=== PATIENT | female | born 1940 | race Hispanic/Latino ===

== ENCOUNTER 2021-01-29 14:11 | Inpatient (IN) | payer MEDICARE ==
--- NOTE | 2021-01-29 14:25 | Event Note ---
ED Screening Note ED Screening Note: Patient brought in by her daughter with complaints of altered mental status that began 3 days ago The daughter states that it was at its worse yesterday but improved today She states that she was altered and did not want to cooperate or have her blood sugars checked and acting abnormally She states it seemed like she was slurring her speech and having difficulty walking Patient states that she is also had a cough for 4 to 5 days Patient was sent in by her primary care doctor due to hypotension and her s ymptoms She has a history of hypertension and diabetes She denies any fever, nausea, vomiting, diarrhea, abdominal pain Daughter states that her blood sugar was elevated yesterday in the 400s This initial assessment/diagnostic orders/clinical plan/treatment(s) is/are subject to change based on patients health status, clinical progression and re- assessment by fellow clinical providers in the ED. Further treatment and workup at subsequent clinical providers discretion. Patient/guardian urged not to elope from the ED as their condition may be serious if not clinically assessed and managed. Initial orders include: Labs, EKG, CT, x-ray
[2021-01-29 16:34] LABS: Basophils # (Auto) 0.1 K/mm3 (0.0-0.1); Basophils % (Auto) 0.9 % (0.0-1.8); Eosinophils # (Auto) 0.3 K/mm3 (0.0-0.4); Eosinophils % (Auto) 3.7 % (0.0-4.3); Hematocrit 36.2 % (30.3-42.9); Lymphocytes # (Auto) 2.7 K/mm3 (1.2-5.4); Lymphocytes % (Auto) 29.6 % (13.4-35.0); Mean Corpuscular HGB Conc 33 % (30-34); Mean Corpuscular Volume 85 fl (79-97); Monocytes # (Auto) 0.9 K/mm3 (0.0-0.8); Monocytes % (Auto) 9.8 % (0.0-7.3); Platelet Count 202 K/mm3 (140-440); Red Blood Count 4.28 M/mm3 (3.65-5.03); Red Cell Distribution Width 15.5 % (13.2-15.2)
--- NOTE | 2021-01-29 16:40 | XRay Report ---
CHEST 2 VIEWS INDICATION / CLINICAL INFORMATION: cough. COMPARISON: None available. FINDINGS: SUPPORT DEVICES: None. HEART / MEDIASTINUM: No significant abnormality. LUNGS / PLEURA: No significant pulmonary or pleural abnormality. No pneumothorax. ADDITIONAL FINDINGS: Sclerotic lesion is seen in the proximal left humeral metaphysis IMPRESSION: 1. No acute findings. Sclerotic irregularity left humeral metaphysis however this was also seen in 20 11 and likely benign. Signer Name: Daniele James MD Signed: 01/29/2021 4:36 PM Workstation Name: [id number]
[2021-01-29 16:46] LABS: Partial Thromboplastin Time 35.4 Sec. (24.2-36.6)
[2021-01-29] MEDS ORDERED: SODIUM CHLORIDE 0.9% 1000 ML 1,000 ML IV ONE (16:53)
[2021-01-29] MEDS ORDERED: SODIUM CHLORIDE 0.9% 1000 ML IV SOLN IV ONE (16:54)
[2021-01-29 16:59] LABS: Alanine Aminotransferase 8 units/L (7-56); Albumin 4.3 g/dL (3.9-5); BUN/Creatinine Ratio 20; Blood Urea Nitrogen 30 mg/dL (7-17); Calcium 9.4 mg/dL (8.4-10.2); Hemolysis Index 31
--- NOTE | 2021-01-29 18:22 | Emergency Department Report ---
ED Neuro Deficit HPI - General Chief Complaint: Altered Mental Status Stated Complaint: POSSIBLE STROKE Time Seen by Provider: 01/29/21 14:22 Source: patient, family Mode of arrival: Wheelchair Limitations: No Limitations - History of Present Illness Initial Comments: Chief complaint: Slurred speech, difficulty walking, confusion HPI: This is a 80-year-old female with history of insulin-dependent diabetes, coronary artery disease status post cardiac stents, hypertension, hyperlipidemia, breast cancer in remission who presents with slurred speech and difficulty walking for the past few days. Patient has been confused and agitated. She was brought to the emergency department after being evaluated by PCP today. Patient has had gait instability and slurred speech since Tuesday. Yesterday she was agitated. On speaking to her daughter, she insisted that she did not have diabetes. Patient was evaluated in PCPs office. PCP was concerned for CVA, dehydration. Blood sugar over 300 in the office. Blood pressure 1/70 PCP desired to rule out VT, sepsis, CVA. -: Gradual, days(s) (3 days ago on Tuesday) Location: speech, ataxia Presenting Symptoms: Present: Altered Mental Status History of same: No Place: home Severity: moderate Improves With: none Worsens With: none On Anticoagulants: No Context: gradual onset Associated Symptoms: confusion Treatments Prior to Arrival: other (Evaluation by PCP) - Related Data Allergies/Adverse Reactions: Allergies Allergy/AdvReac Type Severity Reaction Status Date / Time codeine Allergy Shortness Unverified 10/30/14 11:25 of Breath iodine Allergy Hives Unverified 10/30/14 11:25 Sulfa (Sulfonamide Allergy Seizure Unverified 10/30/14 11:25 Antibiotics) ED Review of Systems ROS: Stated complaint: POSSIBLE STROKE Other details as noted in HPI Comment: All other systems reviewed and negative Constitutional: malaise Cardiovascular: denies: chest pain Gastrointestinal: denies: abdominal pain, nausea, vomiting Neurological: confusion, abnormal gait. denies: headache ED Past Medical Hx - Past Medical History Previous Medical History?: Yes Hx Hypertension: Yes Hx Diabetes: Yes Hx of Cancer: Yes Additional medical history: heart stents - Surgical History Past Surgical History?: Yes Additional Surgical History: double masectomy November 2019 - Social History Smoking Status: Never Smoker Substance Use Type: None ED Neuro Physical Exam - General Limitations: No Limitations General appearance: alert, in no apparent distress Suspected Stroke: Yes - Head Head exam: Present: atraumatic, normocephalic - Eye Eye exam: Present: normal appearance - ENT ENT exam: Present: mucous membranes dry - Neck Neck exam: Present: normal inspection, full ROM - Respiratory Respiratory exam: Present: normal lung sounds bilaterally. Absent: respiratory distress - Cardiovascular Cardiovascular Exam: Present: regular rate, normal rhythm, normal heart sounds. Absent: systolic murmur, diastolic murmur, rubs, gallop - GI/Abdominal GI/Abdominal exam: Present: soft, normal bowel sounds. Absent: tenderness, guarding, rebound - Extremities Exam Extremities exam: Present: normal inspection - Neurological Exam Neurological exam: Present: alert, oriented X3 - NIHSS Assessment Interval: Baseline 1a. Level of Consciousness: alert/keenly responsive 1b. LOC Questions: answers both correctly 1c. LOC Commands: performs tasks correctly 2. Best Gaze: normal 3. Visual: no visual loss 4. Facial Palsy: normal symmetrical movement 5b. Motor Arm Right: no drift 5a. Motor Arm Left: no drift 6a. Motor Leg Left: no drift 6b. Motor Leg Right: no drift 7. Limb Ataxia: absent 8. Sensory: normal 9. Best Language: no aphasia 10. Dysarthria: normal 11. Extinction/Inattention: no abnormality Total Score: 0 Stroke Severity: No Stroke Symptoms - Psychiatric Psychiatric exam: Present: normal affect, normal mood - Skin Skin exam: Present: warm, dry, intact, normal color. Absent: rash ED Course Vital Signs 01/29/21 01/29/21 01/29/21 14:26 18:16 18:28 Temperature 98.0 F Pulse Rate 68 Respiratory 18 17 Rate Blood Pressure Blood Pressure 99/45 [Right] O2 Sat by Pulse 96 91 Oximetry 01/29/21 01/29/21 18:31 18:47 Temperature Pulse Rate 61 79 Respiratory Rate Blood Pressure 119/53 Blood Pressure [Right] O2 Sat by Pulse 100 Oximetry - Lab Data Result diagrams: 01/29/21 15:59 01/29/21 15:59 Lab Results 01/29/21 01/29/21 01/29/21 Range/Units 14:23 15:59 15:59 WBC 9.1 (4.5-11.0) K/mm3 RBC 4.28 (3.65-5.03) M/mm3 Hgb 12.0 (10.1-14.3) gm/dl Hct 36.2 (30.3-42.9) % MCV 85 (79-97) fl MCH 28 (28-32) pg MCHC 33 (30-34) % RDW 15.5 H (13.2-15.2) % Plt Count 202 (140-440) K/mm3 Lymph % (Auto) 29.6 (13.4-35.0) % [place] % (Auto) 9.8 H (0.0-7.3) % Eos % (Auto) 3.7 (0.0-4.3) % Baso % (Auto) 0.9 (0.0-1.8) % Lymph # (Auto) 2.7 (1.2-5.4) K/mm3 [place] # (Auto) 0.9 H (0.0-0.8) K/mm3 Eos # (Auto) 0.3 (0.0-0.4) K/mm3 Baso # (Auto) 0.1 (0.0-0.1) K/mm3 Seg Neutrophils % 56.0 (40.0-70.0) % Seg Neutrophils # 5.1 (1.8-7.7) K/mm3 PT 13.0 (12.2-14.9) Sec. INR 1.00 (0.87-1.13) APTT 35.4 (24.2-36.6) Sec. VBG pH (7.320-7.420) Sodium (137-145) mmol/L Potassium (3.6-5.0) mmol/L Chloride (98-107) mmol/L Carbon Dioxide (22-30) mmol/L Anion Gap mmol/L BUN (7-17) mg/dL Creatinine (0.6-1.2) mg/dL Estimated GFR ml/min BUN/Creatinine Ratio % Glucose (65-100) mg/dL POC Glucose 252 H (70-105) mg/dL Lactic Acid (0.7-2.0) mmol/L Calcium (8.4-10.2) mg/dL Magnesium (1.7-2.3) mg/dL Total Bilirubin (0.1-1.2) mg/dL AST (5-40) units/L ALT (7-56) units/L Alkaline Phosphatase (35-129) units/L Total Creatine Kinase (30-135) units/L Troponin T (0.00-0.029) ng/mL Total Protein (6.3-8.2) g/dL Albumin (3.9-5) g/dL Albumin/Globulin Ratio % 01/29/21 01/29/21 01/29/21 Range/Units 15:59 15:59 15:59 WBC (4.5-11.0) K/mm3 RBC (3.65-5.03) M/mm3 Hgb (10.1-14.3) gm/dl Hct (30.3-42.9) % MCV (79-97) fl MCH (28-32) pg MCHC (30-34) % RDW (13.2-15.2) % Plt Count (140-440) K/mm3 Lymph % (Auto) (13.4-35.0) % [place] % (Auto) (0.0-7.3) % Eos % (Auto) (0.0-4.3) % Baso % (Auto) (0.0-1.8) % Lymph # (Auto) (1.2-5.4) K/mm3 [place] # (Auto) (0.0-0.8) K/mm3 Eos # (Auto) (0.0-0.4) K/mm3 Baso # (Auto) (0.0-0.1) K/mm3 Seg Neutrophils % (40.0-70.0) % Seg Neutrophils # (1.8-7.7) K/mm3 PT (12.2-14.9) Sec. INR (0.87-1.13) APTT (24.2-36.6) Sec. VBG pH 7.333 (7.320-7.420) Sodium 137 (137-145) mmol/L Potassium 4.1 (3.6-5.0) mmol/L Chloride 95.2 L (98-107) mmol/L Carbon Dioxide 23 (22-30) mmol/L Anion Gap 23 mmol/L BUN 30 H (7-17) mg/dL Creatinine 1.5 H (0.6-1.2) mg/dL Estimated GFR 34 ml/min BUN/Creatinine Ratio 20 % Glucose 221 H (65-100) mg/dL POC Glucose (70-105) mg/dL Lactic Acid 4.60 H* (0.7-2.0) mmol/L Calcium 9.4 (8.4-10.2) mg/dL Magnesium 1.60 L (1.7-2.3) mg/dL Total Bilirubin 0.20 (0.1-1.2) mg/dL AST 12 (5-40) units/L ALT 8 (7-56) units/L Alkaline Phosphatase 69 (35-129) units/L Total Creatine Kinase 112 (30-135) units/L Troponin T < 0.010 (0.00-0.029) ng/mL Total Protein 6.8 (6.3-8.2) g/dL Albumin 4.3 (3.9-5) g/dL Albumin/Globulin Ratio 1.7 % - EKG Data -: EKG Interpreted by [place] EKG shows normal: sinus rhythm, axis Rate: bradycardia 01/29/21 18:48 EKG obtained 1839 EKG interpreted by or Sinus bradycardia rate 55 bpm normal axis normal QTC +U wavepositive LVH - Radiology Data Radiology results: report reviewed Patient Name: NAOMY THOMAS Gender: Female Date of : 1940 Referring Provider: OSMEL INTERIANO Organization: [facility] Accession Number: [id number] Requested Date: January 29, 2021 14:22 Report Status: Final Requested Procedure: 1 Procedure Description: XR chest routine 2V Modality: XR Findings Reporting MD: Daniele James Dictation Time: January 29, 2021 15:36 Digital Photographic Printer: Not available [employer] Machine Operator Date: CHEST 2 VIEWS INDICATION / CLINICAL INFORMATION: cough. COMPARISON: None available. FINDINGS: SUPPORT DEVICES: None. HEART / MEDIASTINUM: No significant abnormality. LUNGS / PLEURA: No significant pulmonary or pleural abnormality. No pneumothorax. ADDITIONAL FINDINGS: Sclerotic lesion is seen in the proximal left humeral metaphysis IMPRESSION: 1. No acute findings. Sclerotic irregularity left humeral metaphysis however this was also seen in 2010 and likely benign. Signer Name: Daniele James MD Signed: 01/29/2021 3:36 PM Workstation Name: [id number] Patient Name: NAOMY THOMAS Gender: Female Date of : 1940 Referring Provider: SLY AMIN Organization: [facility] Accession Number: [id number] Requested Date: January 29, 2021 18:14 Report Status: Final Requested Procedure: 1 Procedure Description: CT head/brain wo con Modality: CT Findings Reporting MD: Marlon Salcido Dictation Time: January 29, 2021 17:59 Digital Photographic Printer: Not available [employer]ing Machine Operator Date: CT head/brain wo con INDICATION / CLINICAL INFORMATION: 80 years Female; Slurred speech difficulty walking. TECHNIQUE: Routine CT head without contrast. All CT scans at this location are performed using CT dose reduction for ALARA by means of automated exposure control. COMPARISON: None. FINDINGS: There is moderate cerebral white matter disease most consistent with microvascular angiopathy. There is mild cerebral atrophy with associated mild prominence of the ventricular system. There is no clear CT evidence of acute intracranial hemorrhage or significant mass effect. ORBITS: No significant abnormality of visualized orbits. SINUSES / MASTOIDS: No significant abnormality in the visualized paranasal sinuses or mastoid air cells. CRANIOCERVICAL JUNCTION: No significant abnormality. ADDITIONAL FINDINGS: None. IMPRESSION: 1. There is microvascular angiopathy and cerebral atrophy as described without CT evidence of acute intracranial hemorrhage. Signer Name: Marlon Salcido MD Signed: 01/29/2021 5:59 PM Workstation Name: [id number] - Medical Decision Making 1. Gait imbalance, slurred speech: Unclear if orthostatic hypotension due to dehydration versus acute CVA versus acute metabolic encephalopathy versus acute delirium due to infection, considering CT head findings underlying vascular dementia is a consideration. Patient recently moved closer to live with her daughter. 2. Hypotension attributed to hypovolemia. Patient has not eaten well well. She has had persistent hyperglycemia for the last few weeks, IV fluid therapy initiated emergency department 3. Lactic acidosis without overt infection attributed to Metformin use 4. Acute kidney injury GFR of 34: Vasomotor nephropathy due to volume contraction Patient will need further evaluation to rule out CVA and receive volume IV fluid repletion Critical care attestation.: If time is entered above; I have spent that time in minutes in the direct care of this critically ill patient, excluding procedure time. ED Disposition Clinical Impression: Acute CVA (cerebrovascular accident), Dehydration, Acute kidney injury, Acute metabolic encephalopathy Disposition: DC-09 OP ADMIT IP TO THIS HOSP Is pt being admited?: Yes Does the pt Need Aspirin: No Condition: Stable
--- NOTE | 2021-01-29 19:03 | Cat Scan Report ---
CT head/brain wo con INDICATION / CLINICAL INFORMATION: 80 years Female; Slurred speech difficulty walking. TECHNIQUE: Routine CT head without contrast. All CT scans at this location are performed using CT dos e reduction for ALARA by means of automated exposure control. COMPARISON: None. FINDINGS: There is moderate cerebral white matter disease most consistent with microvascular angiopathy. There is mild cerebral atrophy with associated mild prominence of the ventricular system. There is no clear CT evidence of acute intracranial hemorrhage or significant mass effect. ORBITS: No significant abnormality of visualized orbits. SINUSES / MASTOIDS: No significant abnormality in the visualized paranasal sinuses or mastoid air marry ls. CRANIOCERVICAL JUNCTION: No significant abnormality. ADDITIONAL FINDINGS: None. IMPRESSION: 1. There is microvascular angiopathy and cerebral atrophy as described without CT evidence of acute i ntracranial hemorrhage. Signer Name: Marlon Salcido MD Signed: 01/29/2021 6:59 PM Workstation Name: [id number]
[2021-01-29 21:48] LABS: Bilirubin,Urine NEG (Negative); Blood,Urine NEG (Negative); Color,Urine Yellow (Yellow); Hyaline Casts,Urine 1 /LPF; Protein,Urine <15 mg/dL mg/dL (Negative); Urobilinogen,Urine < 2.0 mg/dL (<2.0)
[2021-01-30] MEDS ORDERED: oxyCODONE /ACETAMINOPHEN 5-325MG TAB PO PRN (00:41)
[2021-01-30] MEDS ORDERED: ACETAMINOPHEN 325 MG TAB PO PRN (00:41)
[2021-01-30] MEDS ORDERED: HYDROmorphone 1 MG/1 ML INJ IV PRN (00:41)
[2021-01-30] MEDS ORDERED: ONDANSETRON 4 MG/2 ML INJ IV PRN (00:41)
[2021-01-30] MEDS ORDERED: METOCLOPRAMIDE 10 MG TAB PO PRN ×2 (00:41→00:47)
--- NOTE | 2021-01-30 00:44 | History and Physical Report ---
History of Present Illness Date of examination: 01/30/21 Date of admission: 01/29/21 19:03 Chief complaint: Left lower extremity weakness for 5 days History of present illness: 80-year-old female with history of insulin-dependent diabetes, coronary artery disease with stents, hypertension and hyperlipidemia s/p breast cancer in remission comes in for difficulty walking for the past 5 days. Patient has left lower extremity weakness and unable to walk. Patient had prior lumbar disc surgery few years ago. Because of the patient's lower left extremity weakness patient has to be held while walking. Patient states that she may have slurred speech but while talking with me her speech was clear. Patient had multiple surgeries in the past. - Past Medical History --Previous Medical History?: Yes --Hypertension: Yes --Diabetes: Yes --Cancer: Yes --Additional medical history: heart stents - Surgical History Past Surgical History?: Yes Additional Surgical History: double masectomy November 2019 Hysterectomy - Social History Smoking Status: Never Smoker Substance Use Type: None -Family history Htn Review of Systems ROS: Constitutional no weight loss or weight gain no fever or chills HEENT no sore throat no post nasal drip no diplopia Neck no neck stiffness no lymph gland enlargement Chest and lungs no shortness of breath cough or wheezing CVS no chest pain no diaphoresis no palpitations GI no nausea no vomiting no diarrhea Genitourinary system no dysuria no flank pain Musculoskeletal system no muscle pains no joint pains UNIFORMER left lower extremity weakness Skin no rash no itching Psychiatric no depression no homicidal or suicidal tendencies Hematologic no lymphedema or bruising Endocrine no polydipsia no polyuria no cold intolerance no heat intolerance Medications and Allergies Allergies Allergy/AdvReac Type Severity Reaction Status Date / Time codeine Allergy Shortness Unverified 10/30/14 11:25 of Breath iodine Allergy Hives Unverified 10/30/14 11:25 Sulfa (Sulfonamide Allergy Seizure Unverified 10/30/14 11:25 Antibiotics) Exam - Constitutional Vitals: Temp Pulse Resp BP Pulse Ox 98.3 F 60 16 135/52 95 01/29/21 22:56 01/29/21 22:56 01/29/21 22:56 01/29/21 22:56 01/29/21 22:56 General appearance: Present: no acute distress, well-nourished - EENT Eyes: Present: PERRL ENT: hearing intact, clear oral mucosa - Neck Neck: Present: supple, normal ROM - Respiratory Respiratory effort: normal Respiratory: bilateral: CTA - Cardiovascular Heart rate: 57 Rhythm: regular Heart Sounds: Present: S1 & S2. Absent: rub, click - Extremities Extremities: no ischemia, pulses symmetrical, No edema Peripheral Pulses: within normal limits - Abdominal General gastrointestinal: Present: soft, non-tender, non-distended, normal bowel sounds Female genitourinary: Present: normal - Rectal Rectal Exam: deferred - Integumentary Integumentary: Present: clear, warm, dry - Musculoskeletal Musculoskeletal: left sided weakness - Psychiatric Psychiatric: appropriate mood/affect, intact judgment & insight - Neurologic Neurologic: CNII-XII intact, focal deficits (Left lower extremity weakness 3/5 power) HEART Score - HEART Score Troponin: Troponin T < 0.010 ng/mL (0.00-0.029) 01/29/21 15:59 Results - Labs CBC & Chem 7: 01/29/21 15:59 01/29/21 15:59 Labs: Laboratory Last Values WBC 9.1 K/mm3 (4.5-11.0) 01/29/21 15:59 RBC 4.28 M/mm3 (3.65-5.03) 01/29/21 15:59 Hgb 12.0 gm/dl (10.1-14.3) 01/29/21 15:59 Hct 36.2 % (30.3-42.9) 01/29/21 15:59 MCV 85 fl (79-97) 01/29/21 15:59 MCH 28 pg (28-32) 01/29/21 15:59 MCHC 33 % (30-34) 01/29/21 15:59 RDW 15.5 % (13.2-15.2) H 01/29/21 15:59 Plt Count 202 K/mm3 (140-440) 01/29/21 15:59 Lymph % (Auto) 29.6 % (13.4-35.0) 01/29/21 15:59 [place] % (Auto) 9.8 % (0.0-7.3) H 01/29/21 15:59 Eos % (Auto) 3.7 % (0.0-4.3) 01/29/21 15:59 Baso % (Auto) 0.9 % (0.0-1.8) 01/29/21 15:59 Lymph # (Auto) 2.7 K/mm3 (1.2-5.4) 01/29/21 15:59 [place] # (Auto) 0.9 K/mm3 (0.0-0.8) H 01/29/21 15:59 Eos # (Auto) 0.3 K/mm3 (0.0-0.4) 01/29/21 15:59 Baso # (Auto) 0.1 K/mm3 (0.0-0.1) 01/29/21 15:59 Seg Neutrophils % 56.0 % (40.0-70.0) 01/29/21 15:59 Seg Neutrophils # 5.1 K/mm3 (1.8-7.7) 01/29/21 15:59 PT 13.0 Sec. (12.2-14.9) 01/29/21 15:59 INR 1.00 (0.87-1.13) 01/29/21 15:59 APTT 35.4 Sec. (24.2-36.6) 01/29/21 15:59 VBG pH 7.333 (7.320-7.420) 01/29/21 15:59 Sodium 137 mmol/L (137-145) 01/29/21 15:59 Potassium 4.1 mmol/L (3.6-5.0) 01/29/21 15:59 Chloride 95.2 mmol/L (98-107) L 01/29/21 15:59 Carbon Dioxide 23 mmol/L (22-30) 01/29/21 15:59 Anion Gap 23 mmol/L 01/29/21 15:59 BUN 30 mg/dL (7-17) H 01/29/21 15:59 Creatinine 1.5 mg/dL (0.6-1.2) H 01/29/21 15:59 Estimated GFR 34 ml/min 01/29/21 15:59 BUN/Creatinine Ratio 20 % 01/29/21 15:59 Glucose 221 mg/dL (65-100) H 01/29/21 15:59 POC Glucose 252 mg/dL (70-105) H 01/29/21 14:23 Lactic Acid 4.60 mmol/L (0.7-2.0) H* 01/29/21 15:59 Calcium 9.4 mg/dL (8.4-10.2) 01/29/21 15:59 Magnesium 1.60 mg/dL (1.7-2.3) L 01/29/21 15:59 Total Bilirubin 0.20 mg/dL (0.1-1.2) 01/29/21 15:59 AST 12 units/L (5-40) 01/29/21 15:59 ALT 8 units/L (7-56) 01/29/21 15:59 Alkaline Phosphatase 69 units/L (35-129) 01/29/21 15:59 Total Creatine Kinase 112 units/L (30-135) 01/29/21 15:59 Troponin T < 0.010 ng/mL (0.00-0.029) 01/29/21 15:59 Total Protein 6.8 g/dL (6.3-8.2) 01/29/21 15:59 Albumin 4.3 g/dL (3.9-5) 01/29/21 15:59 Albumin/Globulin Ratio 1.7 % 01/29/21 15:59 Urine Color Yellow (Yellow) 01/29/21 21:32 Urine Turbidity Clear (Clear) 01/29/21 21:32 Urine pH 5.0 (5.0-7.0) 01/29/21 21:32 Ur Specific [place] 1.012 (1.003-1.030) 01/29/21 21:32 Urine Protein <15 mg/dl mg/dL (Negative) 01/29/21 21:32 Urine Glucose (UA) 50 mg/dL (Negative) 01/29/21 21:32 Urine Ketones Neg mg/dL (Negative) 01/29/21 21:32 Urine Blood Neg (Negative) 01/29/21 21:32 Urine Nitrite Neg (Negative) 01/29/21 21:32 Urine Bilirubin Neg (Negative) 01/29/21 21:32 Urine Urobilinogen < 2.0 mg/dL (<2.0) 01/29/21 21:32 Ur Leukocyte Esterase Neg (Negative) 01/29/21 21:32 Urine WBC (Auto) 1.0 /HPF (0.0-6.0) 01/29/21 21:32 Urine RBC (Auto) 1.0 /HPF (0.0-6.0) 01/29/21 21:32 U Epithel Cells (Auto) < 1.0 /HPF (0-13.0) 01/29/21 21:32 Hyaline Casts 1 /LPF 01/29/21 21:32 Assessment and Plan Advance Directives: Yes (Full code) VTE prophylaxis?: Chemical Plan of care discussed with patient/family: Yes - Patient Problems (1) Monoplegia affecting left nondominant side Current Visit: Yes Status: Acute Plan to address problem: Patient has left lower extremity weakness only We will get MRI of LS spine. And also MRI brain for exclusion of CVA Differential diagnosis of cerebrovascular accident and lumbar disc compression (2) Acute kidney injury Current Visit: Yes Status: Acute Plan to address problem: Secondary to vasomotor nephropathy and dehydration IV fluids for now (3) HTN (hypertension) Current Visit: Yes Status: Chronic Qualifiers: Hypertension type: essential hypertension Qualified Code(s): I10 - Essential (primary) hypertension Plan to address problem: Continue antihypertensives (4) T2DM (type 2 diabetes mellitus) Current Visit: Yes Status: Chronic Qualifiers: Diabetes mellitus termite renewal inspector insulin use: unspecified [facility] insulin use status Plan to address problem: No home medications to reconcile Check hemoglobin A1c Coverage for now (5) DVT prophylaxis Current Visit: Yes Status: Acute Plan to address problem: On heparin and GI prophylaxis
[2021-01-30] MEDS ORDERED: SODIUM CHLORIDE 0.9% 1000 ML 1,000 ML IV SCH (00:45)
--- NOTE | 2021-01-30 00:49 | Event Note ---
Date: 01/29/21 MRI brain and MRI LS spine to be ordered by primary team The system does not allow me to order it
[2021-01-30] MEDS: INSULIN LISPRO 100 UNIT/ML SUB-Q SCH ×4 (07:55→22:43)
--- NOTE | 2021-01-30 08:58 | Consultation ---
History of Present Illness Consult date: 01/30/21 Reason for Consult: Weakness Chief complaint: History of present illness: 80-year-old female with history of insulin-dependent diabetes, coronary artery disease with stents, hypertension and hyperlipidemia s/p breast cancer in remission comes in for difficulty walking for the past 5 days. Patient has left lower extremity weakness and unable to walk. Patient had prior lumbar disc surgery few years ago. Because of the patient's lower left extremity weakness patient has to be held while walking. Patient states that she may have slurred speech but while talking with me her speech was clear. Patient had multiple surgeries in the past. History of present illness: 80-year-old female with history of insulin-dependent diabetes, coronary artery disease with stents, hypertension and hyperlipidemia s/p breast cancer in remission comes in for difficulty walking for the past 5 days. Patient has left lower extremity weakness and unable to walk. Patient had prior lumbar disc surgery few years ago. Because of the patient's lower left extremity weakness patient has to be held while walking. Patient states that she may have slurred speech but while talking with me her speech was clear. Patient had multiple surgeries in the past. The patient reports back pain, but reports slowly progressive left leg weakness , no improvement per patient . Medications and Allergies Allergies Allergy/AdvReac Type Severity Reaction Status Date / Time codeine Allergy Shortness Unverified 10/30/14 11:25 of Breath iodine Allergy Hives Unverified 10/30/14 11:25 Sulfa (Sulfonamide Allergy Seizure Unverified 10/30/14 11:25 Antibiotics) Active Meds: Active Medications Acetaminophen (Acetaminophen 325 Mg Tab) 650 mg PO Q4H PRN PRN Reason: Pain MILD(1-3)/Fever >100.5/RASMUSSEN Amlodipine Besylate (Amlodipine 5 Mg Tab) 5 mg PO QDAY PACO Famotidine (Famotidine 20 Mg/2 Ml Inj) 20 mg IV DAILY PACO Hydralazine HCl (Hydralazine 20 Mg/1 Ml Inj) 10 mg IV Q6HR PRN PRN Reason: Hypertension Hydromorphone HCl (Hydromorphone 1 Mg/1 Ml Inj) 0.5 mg IV Q3H PRN PRN Reason: Pain , Severe (7-10) Sodium Chloride (Nacl 0.9% 1000 Ml) 1,000 mls @ 75 mls/hr IV DIRECT PACO Insulin Human Lispro (Insulin Lispro 100 Unit/Ml) 0 unit SUB-Q ACHS PACO; Protocol Metoclopramide HCl (Metoclopramide 10 Mg Tab) 5 mg PO Q6H PRN PRN Reason: Nausea And Vomiting Ondansetron HCl (Ondansetron 4 Mg/2 Ml Inj) 4 mg IV Q8H PRN PRN Reason: Nausea And Vomiting Oxycodone/Acetaminophen (Oxycodone /Acetaminophen 5-325mg Tab) 1 tab PO Q6H PRN PRN Reason: Pain, Moderate (4-6) Sodium Chloride (Sodium Chloride 0.9% 10 Ml Flush Syringe) 10 ml IV BID PACO Sodium Chloride (Sodium Chloride 0.9% 10 Ml Flush Syringe) 10 ml IV PRN PRN PRN Reason: LINE FLUSH Physical Examination - Vital Signs Vital Signs: Vital Signs Temp Pulse Resp BP Pulse Ox 98.0 F 68 18 99/45 96 01/29/21 14:26 01/29/21 14:26 01/29/21 14:26 01/29/21 14:26 01/29/21 14:26 - Physical Exam Narrative exam: The patient is alert , strength in the upper and right LE is 5/5 . There is weakness in the Left Leg 3/5 and there is ? incoordiantion . Results - Laboratory Findings CBC and BMP: 01/29/21 15:59 01/29/21 15:59 Abnormal Lab Findings: Abnormal Labs 01/29/21 01/29/21 01/29/21 14:23 15:59 15:59 RDW 15.5 H Crane % (Auto) 9.8 H Crane # (Auto) 0.9 H Chloride 95.2 L BUN 30 H Creatinine 1.5 H Glucose 221 H POC Glucose 252 H Lactic Acid Magnesium 1.60 L 01/29/21 15:59 RDW Crane % (Auto) Crane # (Auto) Chloride BUN Creatinine Glucose POC Glucose Lactic Acid 4.60 H* Magnesium Assessment and Plan 1. Possibilty of CVA seems likely . 2. In the differential diagnosis ( focal Lumbar radiculopathy cannot be excludedc ). 3. MRI Brain and MRI Lumbar Spine + MRA Brain and Neck . 4. Needs Inpt PT . 5. Continue all Home Medications . 6. Out Patient Neurology Follow up . Dr. Celeste
[2021-01-30] MEDS: amLODIPine 5 MG TAB PO SCH (09:02)
[2021-01-30] MEDS ORDERED: FAMOTIDINE 20 MG/2 ML INJ IV SCH ×2 (10:00)
--- NOTE | 2021-01-30 10:51 | Electrocardiograph Report ---
[facility] Test Date: 2021-01-29 Test Time: 18:39:57 Pat Name: NAOMY THOMAS Department: Room: A470 1 Gender: F Variety Performer: MONICA : 1940 Requested By: OSMEL INTERIANO Order Number: [id number] Reading MD: Lv Maxwell Measurements Intervals [place] Rate: 57 P: 43 [place]: 166 QRS: 12 QRSD: 102 T: 14 QT: 447 QTc: 435 Interpretive Statements Sinus bradycardia Probable left ventricular hypertrophy Nonspecific T abnormalities, inferior leads No previous ECG available for comparison Electronically Signed On 01-30-2021 10:50:46 EDT by Lv Maxwell
[2021-01-30] MEDS: hydrALAZINE 20 MG/1 ML INJ IV PRN ×2 (12:48→21:10)
[2021-01-30] MEDS ORDERED: MAGNESIUM SULFATE 1 GM in SODIUM CHLORIDE 0.9% 50 ML IV ONE (13:40)
--- NOTE | 2021-01-30 13:46 | Progress Note ---
Subjective Date of service: 01/30/21 Interval history: Chief complaint: Left lower extremity weakness for 5 days History of present illness: 80-year-old female with history of insulin-dependent diabetes, coronary artery disease with stents, hypertension and hyperlipidemia s/p breast cancer in remission comes in for difficulty walking for the past 5 days. Patient has left lower extremity weakness and unable to walk. Patient had prior lumbar disc surgery few years ago. Because of the patient's lower left extremity weakness patient has to be held while walking. Patient states that she may have slurred speech but while talking with me her speech was clear. Patient had multiple surgeries in the past. 01/30 patient is alert and oriented, not in any distress complaints of left lower extremity weakness for the past 5 days and stumbling for words She denies any falls or loss of consciousness. She denies any chest pain or shortness of breath. Neurology note reviewed. Stroke work-up in progress Lab results reviewed Assessment and plan Left lower extremity weakness and dysarthria Stroke work-up initiated Neurology consulted and note reviewed Neurochecks Telemetry Waiting for MRI brain, MRI C-spine and MRA of head and neck Continue aspirin and high intensity statin PT/OT/ST Acute kidney injury Baseline renal function status is not known avoid nephrotoxins Monitor renal function Hypomagnesemia Magnesium supplements ordered Hypertension Patient is outside the window for permissive hypertension Continue home medications Type 2 diabetes Accu-Cheks reviewed A1c pending Continue insulin sliding scale coverage Objective - Constitutional Vitals: Vital Signs - 12hr 01/30/21 01/30/21 01/30/21 05:03 05:29 09:02 Temperature 97.3 F L Pulse Rate 80 56 L 72 Respiratory 18 Rate Blood Pressure 197/63 184/74 Blood Pressure [Right] O2 Sat by Pulse 93 Oximetry 01/30/21 01/30/21 01/30/21 09:03 12:46 12:48 Temperature 97.2 F L Pulse Rate 66 66 Respiratory 17 17 Rate Blood Pressure 184/72 Blood Pressure 184/72 [Right] O2 Sat by Pulse 98 98 Oximetry General appearance: Present: no acute distress - EENT Eyes: PERRL, EOM intact ENT: hearing intact, clear oral mucosa - Neck Neck: supple, normal ROM, no masses or JVD - Respiratory Respiratory: bilateral: CTA - Cardiovascular Rhythm: regular Heart Sounds: Present: S1 & S2 Extremities: No edema - Gastrointestinal General gastrointestinal: Present: soft, non-tender Rectal Exam: deferred - Genitourinary Female genitourinary: deferred - Integumentary Integumentary: clear - Musculoskeletal Musculoskeletal: strength equal bilaterally, left sided weakness (power 3/5) - Neurologic Neurologic: moves all extremities - Psychiatric Psychiatric: appropriate mood/affect - Labs CBC & Chem 7: 01/29/21 15:59 01/29/21 15:59 Labs: Abnormal lab results 01/29/21 01/29/21 01/29/21 Range/Units 14:23 15:59 15:59 RDW 15.5 H (13.2-15.2) % [place] % (Auto) 9.8 H (0.0-7.3) % [place] # (Auto) 0.9 H (0.0-0.8) K/mm3 Chloride 95.2 L (98-107) mmol/L BUN 30 H (7-17) mg/dL Creatinine 1.5 H (0.6-1.2) mg/dL Glucose 221 H (65-100) mg/dL POC Glucose 252 H (70-105) mg/dL Lactic Acid (0.7-2.0) mmol/L Magnesium 1.60 L (1.7-2.3) mg/dL 01/29/21 01/30/21 01/30/21 Range/Units 15:59 07:24 11:31 RDW (13.2-15.2) % [place] % (Auto) (0.0-7.3) % [place] # (Auto) (0.0-0.8) K/mm3 Chloride (98-107) mmol/L BUN (7-17) mg/dL Creatinine (0.6-1.2) mg/dL Glucose (65-100) mg/dL POC Glucose 322 H 317 H (70-105) mg/dL Lactic Acid 4.60 H* (0.7-2.0) mmol/L Magnesium (1.7-2.3) mg/dL HEART Score - HEART Score Troponin: Troponin T < 0.010 ng/mL (0.00-0.029) 01/29/21 15:59
[2021-01-30 14:19] LABS: Basophils # (Auto) 0.1 K/mm3 (0.0-0.1); Eosinophils # (Auto) 0.1 K/mm3 (0.0-0.4); Eosinophils % (Auto) 1.4 % (0.0-4.3); Hemoglobin 13.1 gm/dl (10.1-14.3); Lymphocytes # (Auto) 1.3 K/mm3 (1.2-5.4); Mean Corpuscular HGB Conc 34 % (30-34); Mean Corpuscular Volume 82 fl (79-97); Monocytes # (Auto) 0.4 K/mm3 (0.0-0.8); Monocytes % (Auto) 7.1 % (0.0-7.3); Platelet Count 191 K/mm3 (140-440); Red Blood Count 4.75 M/mm3 (3.65-5.03)
[2021-01-30 14:39] LABS: Alanine Aminotransferase 7 units/L (7-56); Albumin 4.5 g/dL (3.9-5); BUN/Creatinine Ratio 21; Blood Urea Nitrogen 17 mg/dL (7-17); Calcium 9.4 mg/dL (8.4-10.2); Hemolysis Index 34
--- NOTE | 2021-01-30 16:26 | Magnetic Resonance Report ---
MR lumbar spine wo con INDICATION / CLINICAL INFORMATION: CVA. TECHNIQUE: Multisequence, multiplanar images of the lumbar spine were obtained. COMPARISON: None available. FINDINGS: NOMENCLATURE: For the purposes of this report, L5-S1 is defined as axial image 34 of series 7. ALIGNMENT: Normal alignment. VERTEBRAE:Degenerative endplate edema at L4-5. No aggressive osseous marrow signal. Vertebral body he ights are preserved. VISUALIZED SPINAL CORD: The conus appears within normal limits. [id number] ANALYSIS: L1-2: No significant spinal canal stenosis. No significant foraminal narrowing. L2-3: No significant spinal canal stenosis. No significant foraminal narrowing. L3-4: Small central protrusion. Moderate facet arthropathy. Mild spinal canal stenosis. Mild lateral recess narrowing. No significant foraminal narrowing. L4-5: Asymmetric to left disc bulge. Mild facet arthropathy. Mild greater than right foraminal narrow ing. L5-S1: No significant spinal canal stenosis. No significant foraminal narrowing. PARASPINAL SOFT TISSUES: No significant abnormality. ADDITIONAL FINDINGS: None. IMPRESSION: Small central protrusion at L3-L4 with mild spinal canal stenosis and lateral recess narrowing. Otherwise, multilevel spondylosis as described above without significant spinal canal or foraminal st enosis at any level. Definitions used for the purposes of this report: Lumbar canal stenosis (Park et al. Br J Radiol. 2012;[id number]):[id number]): No stenosis: No attenuation of the CSF spaces Mild stenosis: Anterior CSF space mildly obliterated Moderate stenosis: Anterior CSF space is moderately obliterated; cauda equina partially aggregated Severe stenosis: Marked compression of the dural sac; cauda equina cannot be visually and a ppear as a bundle Lumbar lateral recess stenosis (Tanmay et al. World J Radiol. 2017 February 06;9(5):223-229): No stenosis: Nerve root is bathed in fluid Mild stenosis: Narrowing of the lateral recess without root deviation Moderate stenosis: Narrowing of the recess with nerve root deviation Severe stenosis: Compression of the nerve root Lumbar neural foraminal stenosis (King flood al. AJR Am J Roentgenol. 2009;194(4):1095-8): No stenosis: No attenuation of the fat in the foramen Mild stenosis: Loss of the fat in the foramen on two sides Moderate stenosis: Loss of the fat in the foramen all four sides Severe stenosis: Loss of the fat in the foramen all four sides and compression of the nerve root Signer Name: Maynor Pereira MD Signed: 01/30/2021 4:22 PM Workstation Name: [id number]
[2021-01-30] MEDS ORDERED: LORazepam 2 MG/ML VIAL IV ONE (17:15)
--- NOTE | 2021-01-30 18:13 | Magnetic Resonance Report ---
MR brain wo con INDICATION / CLINICAL INFORMATION: stroke. TECHNIQUE: Multiplanar, multisequence MR images of the brain were obtained. COMPARISON: CT head 01/29/2021 FINDINGS: Please note that the examination is incomplete due to patient being uncooperative. INTRACRANIAL: Punctate foci of restricted diffusion seen within the left centrum semiovale and right occipital lobe.Ventricular caliber is normal. No extra-axial collection. No mass. No herniation. Rogerio or intracranial vascular flow voids are preserved. ORBITS: No significant abnormality of visualized orbits. SINUSES / MASTOIDS: No significant abnormality of visualized sinuses and mastoid air cells. ADDITIONAL FINDINGS: None. IMPRESSION: 1. There are 2 punctate acute infarctions involving the left centrum semiovale and right occipital lo be. Given the differing vascular territories, embolic etiology is favored. Signer Name: Maynor Pereira MD Signed: 01/30/2021 6:09 PM Workstation Name: [id number]
[2021-01-30] MEDS ORDERED: ZIPRASIDONE MESYLATE 20 MG VIAL IM ONE (19:48)
[2021-01-30] MEDS ORDERED: QUEtiapine 25 MG TAB PO ONE (19:50)
[2021-01-31 05:03] LABS: Hematocrit 39.1 % (30.3-42.9); Hemoglobin 13.3 gm/dl (10.1-14.3); Mean Corpuscular HGB Conc 34 % (30-34); Mean Corpuscular Volume 83 fl (79-97); Platelet Count 184 K/mm3 (140-440); Red Blood Count 4.71 M/mm3 (3.65-5.03); Red Cell Distribution Width 14.9 % (13.2-15.2)
[2021-01-31 05:19] LABS: Blood Urea Nitrogen 13 mg/dL (7-17); Calcium 9.6 mg/dL (8.4-10.2); Hemolysis Index 11
[2021-01-31 05:21] LABS: BUN/Creatinine Ratio 19
[2021-01-31] MEDS: INSULIN LISPRO 100 UNIT/ML SUB-Q SCH ×4 (10:45→21:24)
[2021-01-31] MEDS: amLODIPine 5 MG TAB PO SCH (10:46)
[2021-01-31] MEDS: FAMOTIDINE 20 MG TAB PO SCH (10:46)
--- NOTE | 2021-01-31 12:44 | Progress Note ---
Subjective Date of service: 01/31/21 Interval history: Chief complaint: Left lower extremity weakness for 5 days History of present illness: 80-year-old female with history of insulin-dependent diabetes, coronary artery disease with stents, hypertension and hyperlipidemia s/p breast cancer in remission comes in for difficulty walking for the past 5 days. Patient has left lower extremity weakness and unable to walk. Patient had prior lumbar disc surgery few years ago. Because of the patient's lower left extremity weakness patient has to be held while walking. Patient states that she may have slurred speech but while talking with me her speech was clear. Patient had multiple surgeries in the past. 01/30 patient is alert and oriented, not in any distress complaints of left lower extremity weakness for the past 5 days and stumbling for words She denies any falls or loss of consciousness. She denies any chest pain or shortness of breath. Neurology note reviewed. Stroke work-up in progress Lab results reviewed 01/31 patient is confused and paranoid, she thinks she is kidnapped and tied up. Patient had to be given Haldol last night secondary to psychosis and agitation and pulling out IV lines. At this time she appears quite cheerful although confused and paranoid. Lab results reviewed. MRI brain and lumbar spine results reviewed. 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 area MRI brain results reviewed Neurology consulted and note reviewed Neurochecks Telemetry Continue aspirin and high intensity statin Will also add Plavix for 3 weeks and then continue aspirin once daily PT/OT/ST Echocardiogram consult cardiology for possible NIGHAT Acute kidney injury-improved Monitor renal function Hypomagnesemia-mild Magnesium supplemented Hypertensive urgency Patient is outside the window for permissive hypertension Continue home medications Home medication list obtained from patient's daughter Patient is on carvedilol, lisinopril and Imdur Type 2 diabetes Accu-Cheks reviewed A1c 7.8 Continue insulin sliding scale coverage Continue home glargine insulin but will reduce to 10 units daily (she is on 15 units at home) Patient also takes Metformin 850 twice daily at home CAD/PCI cont. imdur-60 mg daily. She is on 120 mg at home Cardiology consulted Psychosis We will start the patient on low-dose ziprasidone We will also continue Paxil but at a reduced dose of 10 mg daily Other medications that patient takes are gabapentin 600 mg 3 times daily, Valium, baclofen and simvastatin 20 mg Objective - Constitutional Vitals: Vital Signs - 12hr 01/31/21 01/31/21 01/31/21 04:33 07:40 11:31 Temperature 98.2 F 98.2 F Pulse Rate 96 H 86 98 H Respiratory 18 18 Rate Blood Pressure 163/78 198/73 O2 Sat by Pulse 95 97 Oximetry General appearance: Present: no acute distress, well-nourished - EENT Eyes: PERRL, EOM intact ENT: hearing intact - Neck Neck: supple, normal ROM - Respiratory Respiratory effort: normal Respiratory: bilateral: CTA - Cardiovascular Rhythm: regular Heart Sounds: Present: S1 & S2 Extremities: No edema - Gastrointestinal General gastrointestinal: Present: soft, non-tender Rectal Exam: deferred - Genitourinary Female genitourinary: deferred - Integumentary Integumentary: clear - Musculoskeletal Musculoskeletal: left sided weakness (Motor power in left lower extremity is 3/5) - Neurologic Neurologic: focal deficits, moves all extremities - Labs CBC & Chem 7: 01/31/21 04:48 01/31/21 04:48 Labs: Abnormal lab results 01/30/21 01/30/21 01/30/21 Range/Units 13:21 13:21 18:25 Chloride 97.7 L (98-107) mmol/L Glucose 340 H (65-100) mg/dL POC Glucose 312 H (70-105) mg/dL Hemoglobin A1c 7.8 H (4-6) % 01/30/21 01/31/21 Range/Units 21:57 04:48 Chloride (98-107) mmol/L Glucose 265 H (65-100) mg/dL POC Glucose 347 H (70-105) mg/dL Hemoglobin A1c (4-6) % HEART Score - HEART Score Troponin: Troponin T < 0.010 ng/mL (0.00-0.029) 01/29/21 15:59
[2021-01-31] MEDS ORDERED: METOPROLOL TARTRATE 25 MG TAB PO SCH (13:00)
--- NOTE | 2021-01-31 13:18 | Consultation ---
History of Present Illness Consult date: 01/31/21 Requesting physician: KURT MCLEAN Consult reason: other (Acute Stroke) History of present illness: 80-year-old female with a past medical history of breast cancer/lymphedema, diabetes, CAD/stents, hypertension, hyperlipidemia, lumbar spine surgery presents to [facility] emergency department with dysarthria, confusion, and weakness of the left lower extremity. An MRI of the brain revealed 2 punctate acute infarctions one involving the left semiovale and the other involving the right occipital lobe suggestive of an embolic event. Initially in the emergency department the patient had a creatinine of 1.5 which has normalized her blood glucose levels have been elevated. The patient had re cent echocardiogram and stress test which were not significantly abnormal. A twelve-lead EKG reveals a sinus bradycardia with a ventricular rate of 57 bpm with evidence of likely left ventricular hypertrophy and some nonspecific ST and T wave changes. Past History Past Medical History: CAD, cancer, diabetes, hypertension, hyperlipidemia Past Surgical History: Other (Lumbar spine surgery) Social history: no significant social history Family history: no significant family history Medications and Allergies Allergies Allergy/AdvReac Type Severity Reaction Status Date / Time codeine Allergy Shortness Unverified 10/30/14 11:25 of Breath iodine Allergy Hives Unverified 10/30/14 11:25 Sulfa (Sulfonamide Allergy Seizure Unverified 10/30/14 11:25 Antibiotics) Active Meds: Active Medications Acetaminophen (Acetaminophen 325 Mg Tab) 650 mg PO Q4H PRN PRN Reason: Pain MILD(1-3)/Fever >100.5/RASMUSSEN Amlodipine Besylate (Amlodipine 5 Mg Tab) 5 mg PO QDAY ON LICENSE OF [facility] Last Admin: 01/31/21 10:46 Dose: 5 mg Documented by: Aspirin (Aspirin Ec 81 Mg Tab) 81 mg PO QDAY ON LICENSE OF [facility] Carvedilol (Carvedilol 25 Mg Tab) 25 mg PO BID ON LICENSE OF [facility] Clopidogrel Bisulfate (Clopidogrel 75 Mg Tab) 75 mg PO QDAY ON LICENSE OF [facility] Famotidine (Famotidine 20 Mg Tab) 20 mg PO DAILY ON LICENSE OF [facility] Last Admin: 01/31/21 10:46 Dose: 20 mg Documented by: Gabapentin (Gabapentin 400 Mg Cap) 400 mg PO TID ON LICENSE OF [facility] Hydralazine HCl (Hydralazine 20 Mg/1 Ml Inj) 10 mg IV Q6HR PRN PRN Reason: Hypertension Last Admin: 01/30/21 21:10 Dose: 10 mg Documented by: Hydromorphone HCl (Hydromorphone 1 Mg/1 Ml Inj) 0.5 mg IV Q3H PRN PRN Reason: Pain , Severe (7-10) Insulin Glargine (Insulin Glargine 100 Units/Ml) 10 units SUB-Q QHS ON LICENSE OF [facility] Insulin Human Lispro (Insulin Lispro 100 Unit/Ml) 0 unit SUB-Q ACHS ON LICENSE OF [facility]; Protocol Last Admin: 01/31/21 10:45 Dose: 6 unit Documented by: Isosorbide Mononitrate (Isosorbide Mononitrate Er 60 Mg Tab) 60 mg PO QDAY ON LICENSE OF [facility] Lisinopril (Lisinopril 40 Mg Tab) 40 mg PO QDAY ON LICENSE OF [facility] Metoclopramide HCl (Metoclopramide 10 Mg Tab) 5 mg PO Q6H PRN PRN Reason: Nausea And Vomiting Ondansetron HCl (Ondansetron 4 Mg/2 Ml Inj) 4 mg IV Q8H PRN PRN Reason: Nausea And Vomiting Oxycodone/Acetaminophen (Oxycodone /Acetaminophen 5-325mg Tab) 1 tab PO Q6H PRN PRN Reason: Pain, Moderate (4-6) Paroxetine HCl (Paroxetine 10 Mg Tab) 10 mg PO QDAY ON LICENSE OF [facility] Quetiapine Fumarate (Quetiapine 25 Mg Tab) 12.5 mg PO BID ON LICENSE OF [facility] Sodium Chloride (Sodium Chloride 0.9% 10 Ml Flush Syringe) 10 ml IV BID ON LICENSE OF [facility] Last Admin: 01/31/21 10:46 Dose: 10 ml Documented by: Sodium Chloride (Sodium Chloride 0.9% 10 Ml Flush Syringe) 10 ml IV PRN PRN PRN Reason: LINE FLUSH Review of Systems All systems: negative (The patient is pleasant however she seems to be somewhat confused and disoriented. The review of system is likely not completely accurate) Physical Examination Vital Signs Temp Pulse Resp BP Pulse Ox 98.0 F 68 18 99/45 96 01/29/21 14:26 01/29/21 14:26 01/29/21 14:26 01/29/21 14:26 01/29/21 14:26 General appearance: no acute distress HEENT: Positive: PERRL, EOMI Neck: Positive: neck supple, trachea midline Cardiac: Positive: Reg Rate and Rhythm Lungs: Positive: clear to auscultation, Normal Breath Sounds Neuro: Positive: Other (Confusion/disorientation) Abdomen: Positive: Soft, Active Bowel Sounds Female genitourinary: deferred Skin: Positive: Clear. Negative: Rash Extremities: Present: normal. Absent: edema Results 01/31/21 04:48 01/31/21 04:48 Cardiac Enzymes 01/30/21 Range/Units 13: AST 13 (5-40) units/L CBC 01/30/21 01/31/21 Range/Units 13: 04:48 WBC 6.2 7.8 (4.5-11.0) K/mm3 RBC 4.75 4.71 (3.65-5.03) M/mm3 Hgb 13.1 13.3 (10.1-14.3) gm/dl Hct 39.0 39.1 (30.3-42.9) % Plt Count 191 184 (140-440) K/mm3 Lymph # (Auto) 1.3 (1.2-5.4) K/mm3 [place] # (Auto) 0.4 (0.0-0.8) K/mm3 Eos # (Auto) 0.1 (0.0-0.4) K/mm3 Baso # (Auto) 0.1 (0.0-0.1) K/mm3 Comprehensive Metabolic Panel 01/30/21 01/31/21 Range/Units 13: 04:48 Sodium 137 141 (137-145) mmol/L Potassium 4.0 3.6 (3.6-5.0) mmol/L Chloride 97.7 L 101.0 (98-107) mmol/L Carbon Dioxide 23 24 (22-30) mmol/L BUN 17 13 (7-17) mg/dL Creatinine 0.8 0.7 (0.6-1.2) mg/dL Glucose 340 H 265 H (65-100) mg/dL Calcium 9.4 9.6 (8.4-10.2) mg/dL AST 13 (5-40) units/L ALT 7 (7-56) units/L Alkaline Phosphatase 79 (35-129) units/L Total Protein 6.6 (6.3-8.2) g/dL Albumin 4.5 (3.9-5) g/dL EKG interpretations - Telemetry EKG Rhythm: Sinus Rhythm Assessment and Plan Myocardial perfusion scan 11/04/2020: Large fixed inferior and inferior apical defect. Normal global LV systolic function with no significant wall motion abnormalities, EF 61%. These findings suggest prior infarction in the right RCA territory. However in the absence of wall motion abnormalities, the defect noted in this patient is probably artifactual. No evidence of significant stress-induced ischemia. Echocardiogram 11/04/2020: Normal LV systolic function, EF 55 to 60%. Normal left atrial pressure with grade 1 diastolic dysfunction. There is trace tricuspid regurgitation. The RV systolic function is normal. MRI brain 12/31/2020: 2 punctate acute infarctions, left semiovale and right occipital lobe. 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 Titrate as tolerated Continue aspirin and Plavix Recommend echocardiogram with contrast for now
[2021-01-31] MEDS: ASPIRIN EC 81 MG TAB PO SCH (14:15)
[2021-01-31] MEDS: CLOPIDOGREL 75 MG TAB PO SCH (14:15)
[2021-01-31] MEDS: LISINOPRIL 40 MG TAB PO SCH (14:15)
[2021-01-31] MEDS: GABAPENTIN 400 MG CAP PO SCH ×2 (14:15→21:05)
[2021-01-31] MEDS: carvediloL 25 MG TAB PO SCH ×2 (14:16→21:06)
[2021-01-31] MEDS: QUEtiapine 25 MG TAB PO SCH ×2 (14:22→21:05)
[2021-01-31] MEDS ORDERED: INSULIN GLARGINE 100 UNITS/ML SUB-Q SCH (22:00)
[2021-01-31] MEDS ORDERED: ZIPRASIDONE 20 MG CAP PO SCH (22:00)
[2021-02-01] MEDS: FAMOTIDINE 20 MG TAB PO SCH (10:19)
[2021-02-01] MEDS: PARoxetine 10 MG TAB PO SCH (10:19)
[2021-02-01] MEDS: carvediloL 25 MG TAB PO SCH ×2 (10:19→21:45)
[2021-02-01] MEDS: INSULIN GLARGINE 100 UNITS/ML SUB-Q SCH ×2 (10:19→21:44)
[2021-02-01] MEDS: amLODIPine 5 MG TAB PO SCH (10:20)
[2021-02-01] MEDS: ASPIRIN EC 81 MG TAB PO SCH (10:20)
[2021-02-01] MEDS: INSULIN LISPRO 100 UNIT/ML SUB-Q SCH ×4 (10:20→22:39)
[2021-02-01] MEDS: GABAPENTIN 400 MG CAP PO SCH ×3 (10:20→21:45)
[2021-02-01] MEDS: CLOPIDOGREL 75 MG TAB PO SCH (10:20)
[2021-02-01] MEDS: QUEtiapine 25 MG TAB PO SCH ×2 (10:26→21:45)
[2021-02-01 10:33] LABS: Calcium 9.3 mg/dL (8.4-10.2)
--- NOTE | 2021-02-01 10:54 | Progress Note ---
Subjective Date of service: 02/01/21 Interval history: Chief complaint: Left lower extremity weakness for 5 days History of present illness: 80-year-old female with history of insulin-dependent diabetes, coronary artery disease with stents, hypertension and hyperlipidemia s/p breast cancer in remission comes in for difficulty walking for the past 5 days. Patient has left lower extremity weakness and unable to walk. Patient had prior lumbar disc surgery few years ago. Because of the patient's lower left extremity weakness patient has to be held while walking. Patient states that she may have slurred speech but while talking with me her speech was clear. Patient had multiple surgeries in the past. 01/30 patient is alert and oriented, not in any distress complaints of left lower extremity weakness for the past 5 days and stumbling for words She denies any falls or loss of consciousness. She denies any chest pain or shortness of breath. Neurology note reviewed. Stroke work-up in progress Lab results reviewed 01/31 patient is confused and paranoid, she thinks she is kidnapped and tied up. Patient had to be given Haldol last night secondary to psychosis and agitation and pulling out IV lines. At this time she appears quite cheerful although confused and paranoid. Lab results reviewed. MRI brain and lumbar spine results reviewed. I had a long discussion with the patient's daughter over the phone and obtain all her home medication list 02/01 patient is alert and oriented and ambulating in the room without assistance. Cardiology and PT notes reviewed. Waiting for echocardiogram Patient offers no specific complaints Assessment and plan Acute bilateral small infarcts in the left centrum semiovale and right occipital area MRI brain results reviewed Neurology consulted and note reviewed Neurochecks Telemetry Continue aspirin and high intensity statin Will also add Plavix for 3 weeks and then continue aspirin once daily PT/OT/ST Echocardiogram pending cardiology consulted/note reviewed PT note reviewed For home PT with robert walker Acute kidney injury-improved Monitor renal function Hypomagnesemia-mild Magnesium supplemented Hypertensive urgency Patient is outside the window for permissive hypertension Continue home medications Home medication list obtained from patient's daughter Patient is on carvedilol, lisinopril and Imdur Type 2 diabetes Accu-Cheks reviewed Poorly controlled A1c 7.8 Continue insulin sliding scale coverage Increase glargine insulin 10 units twice daily Patient also takes Metformin 850 twice daily at home CAD/PCI cont. imdur-60 mg daily. She is on 120 mg at home Cardiology consulted and note reviewed Psychosis-stabilized Patient is alert and oriented and off restraints Ambulating in the room Continue low-dose Seroquel We will also continue Paxil but at a reduced dose of 10 mg daily Other medications that patient takes are gabapentin 600 mg 3 times daily, Valium, baclofen and simvastatin 20 mg Objective - Constitutional Vitals: Vital Signs - 12hr 01/31/21 02/01/21 02/01/21 23:56 04:23 08:25 Temperature 97.5 F L 97.3 F L 97.3 F L Pulse Rate 53 L 48 L 56 L Respiratory 14 14 18 Rate Blood Pressure 97/53 116/54 116/51 O2 Sat by Pulse 94 93 98 Oximetry General appearance: Present: no acute distress, well-nourished - EENT Eyes: PERRL, EOM intact - Neck Neck: supple, normal ROM - Respiratory Respiratory effort: normal Respiratory: bilateral: CTA - Cardiovascular Rhythm: regular Heart Sounds: Present: S1 & S2 Extremities: No edema - Gastrointestinal General gastrointestinal: Present: soft, non-tender Rectal Exam: deferred - Genitourinary Female genitourinary: deferred - Integumentary Integumentary: clear - Neurologic Neurologic: moves all extremities - Psychiatric Psychiatric: appropriate mood/affect - Labs CBC & Chem 7: 01/31/21 04:48 02/01/21 09:13 Labs: Abnormal lab results 01/31/21 01/31/21 01/31/21 Range/Units 07:38 11:18 17:06 Chloride (98-107) mmol/L BUN (7-17) mg/dL Glucose (65-100) mg/dL POC Glucose 313 H 283 H 199 H (70-105) mg/dL 01/31/21 02/01/21 Range/Units 21:15 09:13 Chloride 96.2 L (98-107) mmol/L BUN 32 H (7-17) mg/dL Glucose 355 H (65-100) mg/dL POC Glucose 366 H (70-105) mg/dL HEART Score - HEART Score Troponin: Troponin T < 0.010 ng/mL (0.00-0.029) 01/29/21 15:59
[2021-02-01] MEDS: LISINOPRIL 40 MG TAB PO SCH (11:09)
--- NOTE | 2021-02-01 14:20 | Progress Note ---
Assessment and Plan Myocardial perfusion scan 11/04/2020: Large fixed inferior and inferior apical defect. Normal global LV systolic function with no significant wall motion abnormalities, EF 61%. These findings suggest prior infarction in the right RCA territory. However in the absence of wall motion abnormalities, the defect not ed in this patient is probably artifactual. No evidence of significant stress- induced ischemia. Echocardiogram 11/04/2020: Normal LV systolic function, EF 55 to 60%. Normal left atrial pressure with grade 1 diastolic dysfunction. There is trace tricuspid regurgitation. The RV systolic function is normal. MRI brain 12/31/2020: 2 punctate acute infarctions, left semiovale and right occipital lobe. 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 Titrate as tolerated Continue aspirin and Plavix Recommend echocardiogram with contrast for now Subjective Date of service: 02/01/21 Principal diagnosis: Acute stroke Interval history: Patient sitting up no complaints Objective Vital Signs Temp Pulse Resp BP BP Pulse Ox 02/01/21 12:00 98.7 F 62 18 91/46 96 02/01/21 11:51 98.7 F 59 L 18 88/41 97 02/01/21 11:25 61 02/01/21 08:25 97.3 F L 56 L 18 116/51 98 02/01/21 04:23 97.3 F L 48 L 14 116/54 93 01/31/21 23:56 97.5 F L 53 L 14 97/53 94 01/31/21 21:58 20 01/31/21 21:06 71 100/51 01/31/21 20:11 97.4 F L 71 16 100/51 96 01/31/21 20:00 20 - Physical Examination HEENT: Positive: PERRL, EOMI Neck: Positive: neck supple, trachea midline Cardiac: Positive: Regular Rate Lungs: Positive: Normal Exam, clear to auscultation Neuro: Positive: Other (Confusion/disorientation) Abdomen: Positive: Soft, Active Bowel Sounds Skin: Positive: Clear. Negative: Rash Extremities: Present: normal. Absent: edema - Labs and Meds Comprehensive Metabolic Panel 02/01/21 Range/Units 09:13 Sodium 137 (137-145) mmol/L Potassium 3.8 (3.6-5.0) mmol/L Chloride 96.2 L (98-107) mmol/L Carbon Dioxide 25 (22-30) mmol/L BUN 32 H (7-17) mg/dL Creatinine 1.6 H D (0.6-1.2) mg/dL Glucose 355 H (65-100) mg/dL Calcium 9.3 (8.4-10.2) mg/dL
[2021-02-02 09:13] VITALS: BP 145/51
[2021-02-02] MEDS: ASPIRIN EC 81 MG TAB PO SCH (09:41)
[2021-02-02] MEDS: LISINOPRIL 40 MG TAB PO SCH (09:42)
[2021-02-02] MEDS: amLODIPine 5 MG TAB PO SCH (09:42)
[2021-02-02] MEDS: QUEtiapine 25 MG TAB PO SCH (09:42)
[2021-02-02] MEDS: GABAPENTIN 400 MG CAP PO SCH (09:42)
[2021-02-02] MEDS: FAMOTIDINE 20 MG TAB PO SCH (09:42)
[2021-02-02] MEDS: CLOPIDOGREL 75 MG TAB PO SCH (09:42)
[2021-02-02] MEDS: carvediloL 25 MG TAB PO SCH (09:42)
[2021-02-02] MEDS: INSULIN LISPRO 100 UNIT/ML SUB-Q SCH (09:43)
[2021-02-02] MEDS: INSULIN GLARGINE 100 UNITS/ML SUB-Q SCH (10:30)
--- NOTE | 2021-02-02 10:33 | Discharge Summary ---
Providers - Providers Date of Admission: 01/29/21 19:03 Date of discharge: 02/02/21 Attending physician: KURT MCLEAN 01/30/21 00:41 Consult to Physician [CONS] Routine Comment: Consulting Provider: JACOB PLUMMER Physician Instructions: Reason For Exam: Left lower extremity weakness 01/30/21 11:03 Physical Therapy Evaluation and Treat [CONS] Routine Comment: Reason For Exam: Eval for gait weakness. 01/30/21 11:04 Occupational Therapy Evaluate and Treat [CONS] Routine Comment: Reason For Exam: Evaluation for OT 01/31/21 08:04 Consult to Physician [CONS] Routine Comment: acute multifocal stroke / ?? NIGHAT Consulting Provider: KAR CAMERON Physician Instructions: Reason For Exam: stroke Primary care physician: CERTIFIED FIRE INVESTIGATOR Hospitalization Condition: Stable Hospital course: Chief complaint: Left lower extremity weakness for 5 days History of present illness: 80-year-old female with history of insulin-dependent diabetes, coronary artery disease with stents, hypertension and hyperlipidemia s/p breast cancer in remission comes in for difficulty walking for the past 5 days. Patient has left lower extremity weakness and unable to walk. Patient had prior lumbar disc surgery few years ago. Because of the patient's lower left extremi ty weakness patient has to be held while walking. Patient states that she may have slurred speech but while talking with me her speech was clear. Patient had multiple surgeries in the past. 01/30 patient is alert and oriented, not in any distress complaints of left lower extremity weakness for the past 5 days and stumbling for words She denies any falls or loss of consciousness. She denies any chest pain or shortness of breath. Neurology note reviewed. Stroke work-up in progress Lab results reviewed 01/31 patient is confused and paranoid, she thinks she is kidnapped and tied up. Patient had to be given Haldol last night secondary to psychosis and agitation and pulling out IV lines. At this time she appears quite cheerful although confused and paranoid. Lab results reviewed. MRI brain and lumbar spine results reviewed. I had a long discussion with the patient's daughter over the phone and obtain all her home medication list 02/01 patient is alert and oriented and ambulating in the room without assistance. Cardiology and PT notes reviewed. Waiting for echocardiogram Patient offers no specific complaints 02/02 patient is alert and oriented and no further episodes of confusion or agitation. She wants to go home. She is ambulating fairly well in the room. Echo results reviewed. She is medically stable for discharge. Assessment and plan Acute bilateral small infarcts in the left centrum semiovale and right occipital area MRI brain results reviewed Neurology consulted and note reviewed Continue aspirin and high intensity statin Will also add Plavix for 3 weeks and then continue aspirin once daily PT/OT/ST Echocardiogram results reviewed-no PFO; EF greater than 55% cardiology consulted/note reviewed PT note reviewed For home PT with rolling walker Acute kidney injury-improved Monitor renal function Hypomagnesemia-mild Magnesium supplemented Hypertensive urgency-improved Continue home medications However will decrease carvedilol to 12.5 mg twice daily as the patient is bradycardic Type 2 diabetes Accu-Cheks reviewed Poorly controlled A1c 7.8 Continue home medications CAD/PCI cont. imdur Cardiology consulted and note reviewed Psychosis-stabilized Patient is alert and oriented and off restraints Ambulating in the room Continue low-dose Seroquel We will also continue Paxil Other medications that patient takes are gabapentin 600 mg 3 times daily, Valium, baclofen and simvastatin 20 mg Disposition: DC-01 TO HOME OR SELFCARE Final Discharge Diagnosis (Prints w/discharge instructions): Acute bilateral cerebral infarct Time spent for discharge: 38 min Core Measure Documentation - Palliative Care Palliative Care/ Comfort Measures: Not Applicable - Core Measures Any of the following diagnoses?: stroke - Stroke Discharge Requirements Statin for LDL = or >70 mg/dl on DC: Yes Anticoag for atrial fib/atrial flutter: Not Applicable Antithrombotic for ischemic stroke: Yes Exam - Constitutional Vitals: Temp Pulse Resp BP Pulse Ox 98.1 F 56 L 16 145/51 97 02/02/21 08:30 02/02/21 09:43 02/02/21 08:30 02/02/21 08:30 02/02/21 08:30 General appearance: Present: no acute distress - EENT Eyes: Present: PERRL, EOM intact ENT: hearing intact - Neck Neck: Present: supple, normal ROM - Respiratory Respiratory effort: normal Respiratory: bilateral: CTA - Cardiovascular Rhythm: regular Heart Sounds: Present: S1 & S2 - Extremities Extremities: No edema - Abdominal General gastrointestinal: Present: soft, non-tender - Rectal Rectal Exam: deferred - Integumentary Integumentary: Present: clear - Psychiatric Psychiatric: appropriate mood/affect - Neurologic Neurologic: moves all extremities, gait normal Plan Activity: advance as tolerated, fall precautions Weight Bearing Status: Full Weight Bearing Diet: regular, low fat, low cholesterol, low salt, diabetic Special Instructions: physical therapy, occupational therapy Durable Medical Equipment Needed Upon Discharge: Walker-Rolling Follow up with: PRIMARY MD ROSSY [Primary Care Provider] - 7 Days KWESI STEELE MD [Referring] - 14 Days ROSSANA MICHAUD MD [Staff Physician] - 14 Days Prescriptions: carvediloL [Coreg] 12.5 mg PO BID #60 tablet Aspirin EC [Halfprin EC] 81 mg PO QDAY #30 tablet Clopidogrel [Plavix] 75 mg PO QDAY #20 tablet QUEtiapine [SEROquel] 12.5 mg PO BID #30 tablet
--- NOTE | 2021-02-02 10:38 | Progress Note ---
Assessment and Plan Echo 01/31/2021 reviewed - EF 60-65%, mild diastolic dysfxn, no significant valvular abnormalities, no evidence of PFO. Continue present cardiac mgmt. No objections to discharge from a Cardiology standpoint. Follow-up with Dr. Tracy within 1-2 weeks ([phone]). Pt seen in conjunction with Dr. Lemus, who agrees with the assessment and plan of care. - Patient Problems (1) Acute CVA (cerebrovascular accident) Current Visit: Yes Status: Acute (2) Acute kidney injury Current Visit: Yes Status: Acute (3) CAD (coronary artery disease) Current Visit: Yes Status: Chronic Qualifiers: Coronary Disease-Associated Artery/Lesion type: [place] artery [place] vs. transplanted heart: [place] heart Associated angina: without angina Qualified Code(s): I25.10 - Atherosclerotic heart disease of [place] coronary artery without angina pectoris (4) Stented coronary artery Current Visit: Yes Status: Chronic (5) HTN (hypertension) Current Visit: Yes Status: Chronic Qualifiers: Hypertension type: essential hypertension Qualified Code(s): I10 - Essential (primary) hypertension (6) T2DM (type 2 diabetes mellitus) Current Visit: Yes Status: Chronic Qualifiers: Diabetes mellitus care home insulin use: unspecified care home insulin use status Subjective Date of service: 02/02/21 Principal diagnosis: Acute CVA Interval history: Ambulating around room upon assessment. C/o fatigue. Otherwise no cardiac complaints. Tele reviewed - SR 50-60s, no events. Objective Last Vital Signs Temp 98.1 F 02/02/21 08:30 Pulse 56 L 02/02/21 09:43 Resp 16 02/02/21 08:30 BP 145/51 02/02/21 08:30 Pulse Ox 97 02/02/21 08:30 - Physical Examination General: No Apparent Distress HEENT: Positive: Normocephaly, Mucus Membranes Moist Neck: Positive: neck supple, trachea midline. Negative: JVD/HJR Cardiac: Positive: Reg Rate and Rhythm, S1/S2. Negative: Audible Murmur Lungs: Positive: clear to auscultation (bilaterally) Neuro: Positive: Grossly Intact Abdomen: Positive: Soft. Negative: Tender Skin: Negative: Rash Musculoskeletal: No Pain Extremities: Present: upper extr. pulses, lower extr. pulses. Absent: edema - Labs and Meds Comprehensive Metabolic Panel 02/01/21 Range/Units 09:13 Creatinine 1.6 H D (0.6-1.2) mg/dL - Imaging and Cardiology EKG: report reviewed, image reviewed Pharmacologic stress test: report reviewed (10/2020 - large fixed inferior & inferoapical defect, no significant stress-induced ischemia, EF 61%) Echo: report reviewed (01/31/2021 - EF 60-65%, mild diastolic dysfxn, no significant valvular abnormalities, no evidence of PFO) Cardiac cath: other (PCI x 2 in 2006 per pt report) - Telemetry EKG Rhythm: Sinus Bradycardia - EKG Sinus rhythms and dysrhythmias: sinus bradycardia Chamber hypertrophy or enlargement: left ventricular hypertro Repolarization changes or abnormalities: nonspecific abnormality, ST segment, and/or T wave
[2021-02-02] MEDS: PARoxetine 10 MG TAB PO SCH (12:13)
[2021-02-02] MEDS ORDERED: carvediloL 12.5 MG TAB PO SCH (22:00)
== END 2021-02-02 15:11 | disposition home health service (06) | DRG 64 ==
LOC: ED 14:11 → 4A 19:03 → OBSVTOIN 19:03 → 4A 20:58
PROVIDERS: ADMIT Internal Medicine; ATTEND Internal Medicine
DX: I63.9 Cerebral infarction, unspecified (principal); N17.0 Acute kidney failure with tubular necrosis; E86.0 Dehydration; G93.41 Metabolic encephalopathy; E11.9 Type 2 diabetes mellitus without complications; I25.10 Atherosclerotic heart disease of native coronary artery without angina pectoris; Z79.4 Long term (current) use of insulin; I10 Essential (primary) hypertension; E78.5 Hyperlipidemia, unspecified; Z88.5 Allergy status to narcotic agent; Z88.2 Allergy status to sulfonamides; Z91.041 Radiographic dye allergy status; Z95.5 Presence of coronary angioplasty implant and graft; E86.1 Hypovolemia; I95.9 Hypotension, unspecified; R47.81 Slurred speech; R47.1 Dysarthria and anarthria; G83.14 Monoplegia of lower limb affecting left nondominant side; E83.42 Hypomagnesemia; F29 Unspecified psychosis not due to a substance or known physiological condition; I16.0 Hypertensive urgency; Z85.3 Personal history of malignant neoplasm of breast
CPT/HCPCS: 36415; 70450; 70551; 71046; 72148; 80048; 80053; 81001; 82140; 82550; 82805; 82962; 83036; 83735; 84484; 85025; 85027; 85610; 85730; 93005; 93306; 96360; 96361; G0378; J0360; J1815; J2060; J3475; J3486; J7030

== ENCOUNTER 2021-10-13 06:27 | Outpatient (CLI) | payer MEDICARE ==
[2021-10-13] MEDS ORDERED: SODIUM CHLORIDE 0.9% 1000 ML 1,000 ML IV SCH (07:00)
[2021-10-13] MEDS ORDERED: BENZOCAINE 20% TOP SPRAY 0.5 ML UNIT DOSE MM NR (07:00)
[2021-10-13 07:25] LABS: Basophils % (Auto) 0.9 % (0.0-1.8); Eosinophils # (Auto) 0.2 K/mm3 (0.0-0.4); Eosinophils % (Auto) 4.8 % (0.0-4.3); Hematocrit 35.8 % (30.3-42.9); Hemoglobin 11.5 gm/dl (10.1-14.3); Lymphocytes # (Auto) 1.7 K/mm3 (1.2-5.4); Lymphocytes % (Auto) 34.2 % (13.4-35.0); Mean Corpuscular HGB Conc 32 % (30-34); Mean Corpuscular Volume 83 fl (79-97); Monocytes # (Auto) 0.6 K/mm3 (0.0-0.8); Platelet Count 155 K/mm3 (140-440); Red Blood Count 4.33 M/mm3 (3.65-5.03); Red Cell Distribution Width 15.2 % (13.2-15.2)
[2021-10-13 07:37] LABS: BUN/Creatinine Ratio 17; Blood Urea Nitrogen 15 mg/dL (7-17); Calcium 9.5 mg/dL (8.4-10.2); Hemolysis Index 23
[2021-10-13] MEDS ORDERED: propofoL 200 MG/20 ML VIAL IV ONE ×2 (07:44)
--- NOTE | 2021-10-13 08:47 | Anesthesia Consultation ---
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
--- NOTE | 2021-10-13 08:47 | Anesthesia Day of Surgery ---
Anesthesia Day of Surgery - Day of Surgery Patient Examined: Yes Patient H&P Reviewed: Yes Patient is NPO: Yes
--- NOTE | 2021-10-13 08:47 | Post Anesthesia Evaluation ---
- Post Anesthesia Evaluation Patient Participated: Yes Airway Patent: Yes Stable Respiratory Function: Yes Nausea/Vomiting: No Temp > 96.8F: Yes Pain Manageable: Yes Adequeate Hydration: Yes Anesthesia Complications: No
[2021-10-13 10:38] VITALS: BP 174/76
[2021-10-13 12:11] LABS: INR 1.1 (0.87-1.13); Partial Thromboplastin Time 48.5 Sec. (24.2-36.6)
== END 2021-10-13 11:20 | disposition home or self-care (01) ==
LOC: CATHLABREC 06:27
PROVIDERS: ATTEND Internal Medicine Cardiovascular Disease
DX: I51.3 Intracardiac thrombosis, not elsewhere classified (principal); I34.0 Nonrheumatic mitral (valve) insufficiency; I74.9 Embolism and thrombosis of unspecified artery; I25.10 Atherosclerotic heart disease of native coronary artery without angina pectoris; E11.9 Type 2 diabetes mellitus without complications; I10 Essential (primary) hypertension; E78.49 Other hyperlipidemia; I47.2 Ventricular tachycardia; I89.0 Lymphedema, not elsewhere classified; Z20.822 Contact with and (suspected) exposure to COVID-19; Z95.5 Presence of coronary angioplasty implant and graft; Z86.79 Personal history of other diseases of the circulatory system; Z88.5 Allergy status to narcotic agent; Z88.2 Allergy status to sulfonamides; Z91.041 Radiographic dye allergy status; Z79.899 Other long term (current) drug therapy; Z79.82 Long term (current) use of aspirin; Z98.890 Other specified postprocedural states; Z85.3 Personal history of malignant neoplasm of breast; Z86.73 Personal history of transient ischemic attack (TIA), and cerebral infarction without residual deficits
CPT/HCPCS: 36415; 80048; 85025; 85610; 85730; 93312; 93320; 93325; J2704; J7030; U0003; J7120; Q0162